=== PATIENT | female | born 1950 | race Two or more races ===

== ENCOUNTER 2022-08-16 07:00 | Inpatient (IN) | payer OTHER ==
[~2022-08-16] VITALS: Ht 162.6 cm; Wt 105.7 kg
[2022-08-16] MEDS ORDERED: TORSEMIDE5 MG PO (08:32)
[2022-08-16] MEDS ORDERED: BISOPROLOL FUMAR5 MG PO (08:33)
[2022-08-16] MEDS ORDERED: DIOVAN320 MG PO (08:33)
[2022-08-16] MEDS ORDERED: TIAZAC180 MG PO (08:34)
[2022-08-16] MEDS ORDERED: ALLEGRA ALLERG180 MG PO (08:35)
[2022-08-16] MEDS ORDERED: SINGULAIR 10MG10 MG PO (08:36)
[2022-08-16] MEDS ORDERED: BREO ELLIPTA 21 EACH IH (08:36)
[2022-08-16] MEDS ORDERED: ZOCOR20 MG PO (08:37)
[2022-08-22] MEDS ORDERED: MELOXICAM15 MG (14:59)
[2022-08-22] MEDS ORDERED: VALSARTAN320 MG (14:59)
[2022-08-22] MEDS ORDERED: OMEPRAZOLE40 MG (14:59)
[2022-08-22] MEDS ORDERED: ST. JOSEPH ASPI81 M2 (14:59)
[2022-08-25] MEDS ORDERED: ELIQUIS2.5 MG PO (07:32)
[2022-08-25] MEDS ORDERED: PERCOCET 5-3251 EACH PO (07:32)
[2022-08-25] MEDS ORDERED: DUI500 PO (07:32)
== END 2022-08-25 20:57 | DRG 470 ==
LOC: O/R 08-22 05:57 → SURG 08-22 05:57 → SURH 08-22 07:00 → SURG 08-22 17:21
PROVIDERS: ADMIT Orthopaedic Surgery; ATTEND Orthopaedic Surgery
PROC: 0SRD0J9 Replacement of Left Knee Joint with Synthetic Substitute, Cemented, Open Approach (ICD-10-PCS; principal; 2022-08-22 09:45)
DX: M17.12 Unilateral primary osteoarthritis, left knee (principal); D62 Acute posthemorrhagic anemia; M22.12 Recurrent subluxation of patella, left knee; E66.01 Morbid (severe) obesity due to excess calories; I10 Essential (primary) hypertension; Z96.652 Presence of left artificial knee joint; Z20.822 Contact with and (suspected) exposure to COVID-19

== ENCOUNTER 2022-08-30 11:02 | Emergency (ER) | payer OTHER ==
[~2022-08-30] VITALS: Ht 165.1 cm; Wt 107.0 kg
[~2022-08-30 11:02] MED LIST: ALLEGRA ALLERG180 MG PO; BISOPROLOL FUMAR5 MG PO; BREO ELLIPTA 21 EACH IH; DIOVAN320 MG PO; DUI500 PO; ELIQUIS2.5 MG PO; MELOXICAM15 MG; OMEPRAZOLE40 MG; PERCOCET 5-3251 EACH PO; SINGULAIR 10MG10 MG PO; ST. JOSEPH ASPI81 M2; TIAZAC180 MG PO; TORSEMIDE5 MG PO; VALSARTAN320 MG; ZOCOR20 MG PO
== END 2022-08-30 19:29 ==
LOC: ER 11:02
DX: M79.662 Pain in left lower leg (principal); Z91.013 Allergy to seafood; Z88.8 Allergy status to other drugs, medicaments and biological substances; J45.909 Unspecified asthma, uncomplicated; M17.12 Unilateral primary osteoarthritis, left knee; Z96.652 Presence of left artificial knee joint

== ENCOUNTER 2024-05-20 07:15 | Inpatient (IN) | payer OTHER ==
[~2024-05-20] VITALS: Ht 165.1 cm; Wt 110.7 kg
[2024-05-20 09:42] LABS: INR 1.07; PARTIAL THROMBOPLASTIN TIME 29.3 SECONDS (22.0-34.0); PROTHROMBIN TIME 11.6 SECONDS (9.0-11.5)
[2024-05-20 10:13] LABS: RH POSITIVE
[2024-05-27] MEDS ORDERED: DICLOFENAC SOD100 MG (08:03)
[2024-05-27] MEDS ORDERED: FARXIGA10 MG (08:03)
[2024-05-27] MEDS ORDERED: FEXOFENADINE H180 MG (08:03)
[2024-05-27] MEDS ORDERED: OPTIMAL D31250 MCG (08:03)
[2024-05-27] MEDS ORDERED: TORSEMIDE10 MG (08:04)
[2024-05-27] MEDS ORDERED: BOTOX100 UNIT (08:04)
[2024-05-27] MEDS ORDERED: KETOROLAC TROMETHAMINE 60 MG VIAL IM ONE (08:30)
[2024-05-27] MEDS ORDERED: LIDOCAINE HCL 1%/EPINEPHRINE 20ML VIAL IJ ONE (08:30)
[2024-05-27] MEDS ORDERED: MORPHINE SULFATE 4 MG/ML VIAL IV ONE (08:30)
[2024-05-27] MEDS ORDERED: TRANEXAMIC ACID 100MG/1ML (1000MG) AMPUL IV ONE ×2 (08:30)
[2024-05-27] MEDS ORDERED: ISOPROPYL ALCOHOL 30 ML OUNCE TOP ONE (08:30)
[2024-05-27] MEDS ORDERED: BUPIVACAINE HCL 30 ML VIAL IJ ONE (08:30)
[2024-05-27] MEDS ORDERED: CEFAZOLIN SODIUM 1,000 MG VIAL IV ONE (08:30)
[2024-05-27] MEDS ORDERED: VANCOMYCIN HCL 1,000 MG VIAL IR ONE (08:30)
[2024-05-27] MEDS ORDERED: ENALAPRILAT DIHYDRATE 1.25 MG/ML VIAL IV ONE (10:05)
[2024-05-27] MEDS ORDERED: SODIUM CHLORIDE 0.45 % 1,000 ML IV SCH (10:15)
[2024-05-27] MEDS ORDERED: ONDANSETRON HCL 2 MG/ML VIAL IV PRN (10:15)
[2024-05-27] MEDS ORDERED: MORPHINE SULFATE 4 MG/ML CARTRIDGE IV PRN (10:15)
[2024-05-27] MEDS ORDERED: OxyCODONE HCL 5 MG TABLET (ROXICODONE) PO PRN (10:15)
[2024-05-27] MEDS ORDERED: ACETAMINOPHEN 500 MG GEL..CAP PO SCH (12:00)
[2024-05-27 14:07] VITALS: BP 121/71; O2SAT 98
[2024-05-27 16:49] VITALS: BP 155/88; O2SAT 100
[2024-05-27] MEDS ORDERED: GABAPENTIN 300 MG CAPSULE PO SCH (17:00)
[2024-05-27] MEDS ORDERED: CEFAZOLIN SODIUM 1,000 MG VIAL IV SCH (17:00)
[2024-05-27] MEDS ORDERED: FAMOtidine 20 MG TABLET PO SCH (20:34)
[2024-05-27] MEDS ORDERED: ALBUTEROL SULFATE 3 ML/2.5 MG AMPUL.NEB IH SCH (21:00)
[2024-05-27] MEDS ORDERED: SIMVASTATIN 20 MG TABLET PO SCH (21:00)
[2024-05-27] MEDS ORDERED: MONTELUKAST SODIUM 10 MG TABLET PO SCH (21:00)
[2024-05-27 23:00] VITALS: BP 137/61; O2SAT 96
[2024-05-28] MEDS ORDERED: ELIQUIS2.5 MG PO (07:40)
[2024-05-28] MEDS ORDERED: PERCOCET 5-3251 EACH PO (07:40)
[2024-05-28] MEDS ORDERED: DUI500 PO (07:40)
[2024-05-28 07:56] LABS: HEMATOCRIT 33.5 % (36.0-45.00); HEMOGLOBIN 11.2 g/dL (12.0-15.00); MEAN CELL VOLUME 84.4 fL (80.00-100.00); MEAN CORPUSCULAR HEMOGLOBIN 28.4 pg (27.00-32.0); MEAN CORPUSCULAR HGB CONC 33.6 g/dl (32.0-36.0); PLATELET COUNT 187 K/uL (150-450); RED BLOOD COUNT 3.97 M/uL (4.00-6.00); RED CELL DISTRIBUTION WIDTH 14.3 % (11.5-14.5)
[2024-05-28 08:00] VITALS: BP 177/87; O2SAT 96
[2024-05-28] MEDS ORDERED: DILTIAZEM HCL 180 MG CAP.SR.24H PO SCH (09:00)
[2024-05-28] MEDS ORDERED: SENNOSIDES 1 TAB TABLET PO SCH (09:00)
[2024-05-28] MEDS ORDERED: APIXABAN 2.5 MG TABLET PO SCH (09:00)
[2024-05-28] MEDS ORDERED: PATIENTS OWN MEDICATION (MEDICAMENTO EN PISO) PO SCH ×3 (09:00→21:00)
[2024-05-28 12:51] LABS: ALBUMIN 3.4 gm/dL (3.4-5.0); BILIRUBIN TOTAL 0.76 mg/dL (0.3-1.2); CALCIUM 8.4 mg/dL (8.5-10.1); CREATININE SERUM 1.17 mg/dL (0.55-1.02); GFR 45.34; GLOBULINA 2.9 G/DL (2.4-3.5); POTASSIUM 4.48 mEq/L (3.5-5.1); TOTAL PROTEIN 6.3 gm/dL (6.4-8.2)
[2024-05-28] MEDS ORDERED: VITAMIN B COMPLEX 1 EACH PO SCH (17:00)
[2024-05-28] MEDS ORDERED: SOD FERRIC GLUC COMPLX/SUCROSE 62.5 MG/5 ML AMPUL IV SCH (17:00)
[2024-05-28] MEDS ORDERED: Cyanocobalamin/Mecobalamin 1 TAB.SL SL SCH (17:00)
[2024-05-28 17:15] VITALS: BP 128/66; O2SAT 98
[2024-05-29] VITALS: BP 144/66; O2SAT 97
[2024-05-29 07:26] LABS: HEMATOCRIT 33.3 % (36.0-45.00); HEMOGLOBIN 11.1 g/dL (12.0-15.00); MEAN CELL VOLUME 84.4 fL (80.00-100.00); MEAN CORPUSCULAR HEMOGLOBIN 28.2 pg (27.00-32.0); MEAN CORPUSCULAR HGB CONC 33.4 g/dl (32.0-36.0); PLATELET COUNT 185 K/uL (150-450); RED BLOOD COUNT 3.95 M/uL (4.00-6.00); RED CELL DISTRIBUTION WIDTH 14.5 % (11.5-14.5)
[2024-05-29 08:07] VITALS: BP 165/75; O2SAT 95
[2024-05-29] MEDS ORDERED: IRON FUM,PS/FOLIC ACID/VITC/B3 1 CAP CAPSULE PO SCH (09:00)
[2024-05-29] MEDS ORDERED: MORPHINE SULFATE 4 MG/ML CARTRIDGE IV PRN (11:15)
[2024-05-29] MEDS ORDERED: OxyCODONE HCL 5 MG TABLET (ROXICODONE) PO PRN (11:15)
[2024-05-29 12:00] VITALS: BP 136/63
[2024-05-29 16:00] VITALS: BP 169/55; O2SAT 99
== END 2024-05-29 20:33 | DRG 470 ==
LOC: O/R 05-27 05:32 → SURH 05-27 07:00 → SURG 05-27 12:55 → SURH 05-27 15:11 → O/R 05-27 17:21 → SURH 05-27 17:22
PROVIDERS: ADMIT Orthopaedic Surgery; ATTEND Orthopaedic Surgery
PROC: 0MNN0ZZ Release Right Knee Bursa and Ligament, Open Approach (ICD-10-PCS; 2024-05-27)
PROC: 0SUC07Z Supplement Right Knee Joint with Autologous Tissue Substitute, Open Approach (ICD-10-PCS; 2024-05-27)
PROC: 0SRC0J9 Replacement of Right Knee Joint with Synthetic Substitute, Cemented, Open Approach (ICD-10-PCS; principal; 2024-05-27 07:00)
DX: M17.11 Unilateral primary osteoarthritis, right knee (principal); M85.461 Solitary bone cyst, right tibia and fibula; S83.011A Lateral subluxation of right patella, initial encounter